=== PATIENT | female | born 1960 | race Caucasian/White ===

== ENCOUNTER → 2020-08-04 | Outpatient (CLI) | payer OTHER ==
--- NOTE | 2020-08-05 06:23 | US ---
EXAMINATION TYPE: US kidneys/renal and bladder DATE OF EXAM: 08/04/2020 COMPARISON: NONE CLINICAL HISTORY: N39.0 Urinary tract infection. frequent UTI's, history of kidney stones EXAM MEASUREMENTS: Right Kidney: 9.5 x 4.4 x 3.9 cm Left Kidney: 10.5 x 4.9 x 4.7 cm Technical limitations due to patient's body habitus Right Kidney: no evidence of hydronephrosis Left Kidney: no evidence of hydronephrosis, appears lobulated Bladder: appears wnl Bilateral Jets seen: no There is no evidence for hydronephrosis at this point in time. No nephrolithiasis is seen. No vikram s are identified on images saved. The urinary bladder is satisfactorily distended. Bilateral ureter al jets are not seen. When scanning right kidney adjacent liver is heterogeneously hyperechoic sugges ting diffuse fatty infiltration. IMPRESSION: Suboptimal study. No hydronephrosis noted bilaterally. Renal sizes are symmetric and with in normal limits.
== END | disposition home or self-care (01) ==
LOC: RADUSWWP 16:27
PROVIDERS: ATTEND Internal Medicine
DX: N39.0 Urinary tract infection, site not specified (principal); Z87.442 Personal history of urinary calculi
CPT/HCPCS: 76770

== ENCOUNTER → 2022-12-28 | Outpatient (CLI) | payer OTHER | END | disposition home or self-care (01) | LOC: LABPAT 11:34 | PROVIDERS: ATTEND Orthopaedic Surgery | DX: Z01.812 Encounter for preprocedural laboratory examination (principal) | CPT/HCPCS: 87070 ==

== ENCOUNTER → 2023-03-31 | Outpatient (CLI) | payer BC, OTHER ==
[2023-03-31 14:29] LABS: Prothrombin Time 10.8 sec (10.0-12.5)
[2023-03-31 18:16] LABS: HCT 39.4 % (37.2-46.3); HGB 12.3 g/dL (12.0-15.0); MCHC 31.2 g/dL (32.0-37.0); MCV 89.5 FL (80.0-97.0); Mean Platelet Volume 11.1 FL (9.5-12.2); NRBC Per 100 WBC 0 X 10*3/uL (0.00-0.01); Platelet Count 258 X 10*3/uL (140-440)
[2023-03-31 18:26] LABS: ALT 46 U/L (8-44); AST 41 U/L (13-35); Albumin 4.1 g/dL (3.8-4.9); Albumin/Globulin Ratio 1.17 Ratio (1.60-3.17); Alkaline Phosphatase 161 U/L (41-126); BUN/Creat Ratio 18.57 Ratio (12.00-20.00); Calcium 9.4 mg/dL (8.7-10.3); Carbon Dioxide 29.4 mmol/L (21.6-31.8); Chloride 101 mmol/L (96-109); Globulin 3.5 g/dL (1.6-3.3); Glucose 102 mg/dL (70-110); Potassium 4.2 mmol/L (3.5-5.5); Sodium 139 mmol/L (135-145); Total Bilirubin 0.4 mg/dL (0.3-1.2); Total Protein 7.6 g/dL (6.2-8.2)
== END | disposition home or self-care (01) ==
LOC: LABPAT 11:53
PROVIDERS: ATTEND Orthopaedic Surgery
DX: Z01.812 Encounter for preprocedural laboratory examination (principal); M16.11 Unilateral primary osteoarthritis, right hip; Z22.322 Carrier or suspected carrier of Methicillin resistant Staphylococcus aureus
CPT/HCPCS: 36415; 80053; 85027; 85610; 85730; 86850; 86900; 86901; 87070

== ENCOUNTER 2023-04-12 05:32 | Day surgery (SDC) | payer BC, OTHER ==
[~2023-04-12 05:32] MED LIST: ACETAMINOPHEN TAB 500 MG TAB PO PRN; GABAPENTIN 300 MG CAP PO PRN; MELOXICAM 7.5 MG TAB PO PRN; TRANEXAMIC 1,000 MG/100ML-NACL 1,000 MG in SALINE 1 100ML.BAG IVPB PRN
[2023-04-12] MEDS ORDERED: DEXAMETHASONE SOD PHOSPHATE 4 MG/ML 1 ML VIAL IV ONE (05:36)
[2023-04-12] MEDS ORDERED: ONDANSETRON 4 MG/2 ML VIAL IVP ONE ×2 (05:36→06:18)
[2023-04-12] MEDS ORDERED: LIDOCAINE 1% (10MG/ML) FOR IV START INTRADERMA PRN (05:36)
[2023-04-12] MEDS: LACTATED RINGERS 1,000 ML IV SCH (06:02)
[2023-04-12] MEDS ORDERED: DEXAMETHASONE SOD PHOSPHATE 4 MG/ML 1 ML VIAL IVP ONE (06:18)
[2023-04-12] MEDS ORDERED: fentaNYL (PF) 50 MCG/ML 2 ML AMP IVP ONE (06:37)
[2023-04-12] MEDS ORDERED: MIDAZOLAM 2 MG/2 ML VIAL IVP ONE (06:37)
[2023-04-12] MEDS ORDERED: WATER FOR INJECTION, STERILE 10 ML VIAL IV ONE (06:55)
[2023-04-12] MEDS ORDERED: PHENYLEPHRINE 10 MG/ML VIAL ONE (06:55)
[2023-04-12] MEDS ORDERED: ePHEDrine 50 MG/ML 1 ML VIAL ONE (06:55)
[2023-04-12] MEDS ORDERED: ROPIVACAINE 5 MG/ML 30 ML VIAL ONE (06:55)
[2023-04-12] MEDS ORDERED: TRANEXAMIC 1,000 MG/100ML-NACL PREMIX BAG ONE (06:55)
[2023-04-12] MEDS ORDERED: fentaNYL (PF) 50 MCG/ML 2 ML AMP ONE (06:55)
[2023-04-12] MEDS ORDERED: MIDAZOLAM 2 MG/2 ML VIAL ONE (06:55)
[2023-04-12] MEDS ORDERED: PROPOFOL 10 MG/ML 20 ML VIAL IV ONE (06:55)
[2023-04-12] MEDS ORDERED: MIDAZOLAM 2 MG/2 ML VIAL IV PRN (07:00)
[2023-04-12] MEDS ORDERED: fentaNYL (PF) 50 MCG/ML 2 ML AMP IV PRN (07:00)
[2023-04-12] MEDS ORDERED: HYDROmorphone 0.5 MG/0.5 ML SYRINGE IVP PRN ×2 (07:00→08:40)
[2023-04-12] MEDS ORDERED: ceFAZolin 1,000 MG in SODIUM CHLORIDE 0.9% 1,000 ML IRRIGATION ONE (07:00)
[2023-04-12] MEDS ORDERED: ROPIVACAINE 5 MG/ML 30 ML VIAL MISCELLANE ONE ×2 (07:28→08:05)
--- NOTE | 2023-04-12 08:15 | P.OP ---
Date of Procedure: 04/12/23 Preoperative Diagnosis: Severe Osteoarthritis right hip Postoperative Diagnosis: Severe osteoarthritis right hip Procedure(s) Performed: Right total hip arthroplasty with a direct anterior approach Implants: [employer] Polarstem standard size 3 with a collar [employer] R3, 3 hole hemispherical acetabular shell, 50 mm [employer] Reflection 6.5 mm cancellus screw, 20 mm 2 [employer] R3, XLPE 20 acetabular liner [employer] Oxinium femoral head 36 mm, +0 All components were press-fit. The articulation is Oxinium on polyethylene. Anesthesia: spinal Surgeon: Rafiq Benites Community Support Associate #1: Fallon Arrington Estimated Blood Loss (ml): 350 Pathology: none sent Condition: stable Disposition: PACU Indications for Procedure: After failure of conservative treatment we discussed the surgical and nonsu rgical treatment options at length. Patient wishes to proceed with a total hip arthroplasty with a direct anterior approach. Complications specific to this procedure were discussed at length, including but not limited to infection, leg length discrepancy, dislocation, nerve injury, and fracture. Covid-19 was also discussed at length with the patient, and they are aware of the current policies and procedures. The patient was given the option of delaying surgery, but they elect to proceed knowing these risks. Patient is aware of all these complications and informed consent was obtained Operative Findings: The operative findings are consistent with severe osteoarthritis of the right hip Description of Procedure: The patient was seen and evaluated in the preoperative area and the consent was reviewed. The operative site was marked with a skin marker. The patient verified the procedure and operative site. A MARCO A block was placed by anesthesia in the preoperative area. The patient was then brought to the operating room and given preoperative antibiotics intravenously. 1 g of Tranexamic acid was also given intravenously. A spinal anesthetic was administered by the anesthesia department. The patient was then placed on the [place] table with the bony prominences well-padded. The hip area was then prepped with a ChloraPrep solution and draped in the usual sterile fashion. A universal timeout was then performed, which confirmed the patient's name, surgical site, ALLERGIES, and procedure being performed on the consent. Next the incision site was located at 1 cm distal and 4 cm lateral to the anterior superior iliac spine. The skin and subcutaneous tissues were sharply incised. Incision was carefully dissected down to the fascia overlying the tensor fascia kaley muscle. This fascia was then incised in line with the muscle fibers. Care was taken to stay laterally in order to avoid injuring the lateral femoral cutaneous nerve. Next, using blunt finger dissection, the tensor fascia kaley muscle was dissected off its investing fascia. The muscle was then carefully retracted laterally with a cobra retractor over the lateral neck of the femur. Next, the circumflex vessels were identified and cauterized using the Aquamantis device. The anterior hip capsule was then exposed. The capsule was then opened and an inverted T fashion. The retractors were then placed intracapsularly. The retractors were maintained intracapsular throughout the procedure. The proximal femur was then visualized. Fluoroscopic x-rays were then taken in order to evaluate the preoperative leg lengths. A small amount of traction was placed on the leg. The femoral neck was then osteotomized at the appropriate level above the lesser trochanter. A small wedge of bone was then removed from the remaining femoral head. Next, using a corkscrew the femoral head was removed from the acetabulum. On gross visual inspection, the femoral head had complete loss of articular cartilage and multiple periarticular osteophytes. The femoral head was then measured. Attention was then turned to the acetabulum. The acetabulum was exposed and any remaining labrum was excised. Sequential reaming of the acetabulum was performed using fluoroscopic guidance until there was a good bed of bleeding cancellus bone. When the appropriate size was reached, a trial was then placed. The position and fit of the trial was checked with fluoroscopy. The trial was then removed. Then, using fluoroscopic guidance, the final implant was impacted at 20 of anteversion and 40 of abduction, and fully seated in the acetabulum. 2 screws were then placed in the acetabulum. Again fluoroscopy was used to check position of the screws. Next, the liner was then impacted, with a 20 elevated liner located in the anterior superior quadrant. Component locking was confirmed. Attention was then directed to the femur. With the aid of the [place] table, the femur was externally rotated to approximately 130, extended, and adducted under the opposite leg. A side hook was then placed under the proximal femur, and the side hook elevator was used to elevate the proximal femur while releasing the capsule. Retractors were then placed. A capsular release was performed, as well as a release of the conjoined tendon, which afforded excellent v isualization of the proximal femur. Next, a box osteotome was used to lateralize the proximal femur. A hand method lasting machine operator was then used to locate the femoral canal. Sequential broaching was then performed with appropriate size which afforded excellent fixation in the proximal femur. A trial was then placed with appropriate head and neck, and the hip was gently reduced with the aid of the [place] table. Fluoroscopy was then used to check position of the components, as well as to evaluate the leg lengths and offset. The leg lengths and offset were measured as closely as possible to ensure stability of the hip. The hip was then gently dislocated and the trials were then removed. Final implants were then impacted and the hip was again reduced. Final fluoroscopic x-rays confirmed that the components were in anatomic position. The leg lengths and offset were measured and were found to coincide with the trial measurements. The hip was also taken through range of motion, and found to be stable. The hip was then copiously irrigated with antibiotic solution with pulsatile lavage. The hip was then irrigated with Irrisept solution. The soft tissues were then injected with a ropivacaine solution. A second dose of 1 g of Tranexamic acid was also given intravenously. The fascia was then closed with 2-0 strata fix suture. The subcutaneous tissue was closed with 3-0 Vicryl. The subcuticular tissue was closed with 3-0 strata fix suture. The skin was then closed with Exofin skin glue. After the glue and dried, and Optifoam silver impregnated dressing was applied. The patient was t hen transferred to the recovery room in stable condition. The compliance assistant EDUARD Joshi was required due to the complexity of surgery, and the need for skilled surgical physician assistant for positioning, draping, exposure, retraction, and closure of the wound.
[2023-04-12] MEDS ORDERED: LACTATED RINGERS 1,000 ML IV ONE (08:17)
[2023-04-12] MEDS ORDERED: NALOXONE 0.4 MG/ML 1 ML VIAL IV PRN (08:40)
[2023-04-12] MEDS ORDERED: MAGNESIUM HYDROXIDE 2,400 MG/30 ML CUP PO PRN (08:40)
[2023-04-12] MEDS ORDERED: HYDROmorphone 1 MG/ML 1 ML SYRINGE IVP PRN (08:40)
--- NOTE | 2023-04-12 08:40 | FL ---
EXAMINATION TYPE: FL guidance operating room, XR Hip Limited RT Intraoperative/procedural fluoroscopi c services were provided. Total fluoroscopy time is 47.1 seconds with a total of 3 submitted images t o PACS. Please see the operative/procedural note for further details. DAP: 4.6328 Gycm2
[2023-04-12] MEDS ORDERED: HYDROcodone/APAP 7.5-325MG 1 EACH TAB PO PRN (08:42)
--- NOTE | 2023-04-12 09:14 | XR ---
EXAMINATION TYPE: XR Hip Limited RT DATE OF EXAM: 04/12/2023 8:57 AM CLINICAL INDICATION:Female, 62 years old with history of Status post hip surgery, assess surgical ali gnment; [facility] COMPARISON: Fluoroscopic images in the OR today TECHNIQUE AND FINDINGS: Single frontal view of the right hip. A total hip arthroplasty is in place, appears intact and normal ly aligned. No abnormal perihardware lucency or fracture. No significant malalignment. Small osseous spur again seen along the lateral margin of the acetabulum. Soft tissues show no unexpected radiopaqu e foreign body. Some regional soft tissue gas is suggested, not unexpected postoperative. IMPRESSION: Status post placement of right total hip arthroplasty. No evidence of complication.
[2023-04-12] MEDS: SODIUM CHLORIDE 0.9% 1,000 ML IV SCH ×2 (10:12→23:00)
[2023-04-12] MEDS: ONDANSETRON 4 MG/2 ML VIAL IVP PRN ×2 (11:47→21:52)
--- NOTE | 2023-04-12 13:21 | P.ANPRN ---
Procedure Note - Anesthesia - Nerve Block Performed Right Ray Single Time Out Performed: Yes ([id number]) Date of Procedure: 04/12/23 Location of Patient: PreOp Indication: Acute Post-Operative Pain, Dx/Pain Location (right hip) Specifically requested for management of pain by DrShamar: Rafiq Benites Sedation Type: Sedate with meaningful contact maintained Preparation: Sterile Prep Position: Supine Catheter: None Needle Types: Pajunk Needle Gauge: 21 Ultrasound used to visualize needle placement: Yes Ultrasound used to observe medication spread: Yes Injectate: 0.5% Ropivacaine (see comment for volume) (20 cc + 10 cc of Normal Saline) Blood Aspirated: No Pain Paresthesia on Injection Noted: No Resistance on Injection: Normal Image Stored and Saved: Yes Events: Uneventful and Well Tolerated
[2023-04-12] MEDS ORDERED: tiZANidine 4 MG TAB PO PRN (13:50)
--- NOTE | 2023-04-12 15:23 | P.CONS ---
History of Present Illness - Reason for Consult Consult date: 04/12/23 Medical management, status post right hip arthroplasty - History of Present Illness This is a 62-year-old female who was admitted under orthopedic services status post right hip arthroplasty today postop day 0. Patient reports she follows with Dr. Woodward in the outpatient setting with a past medical history of GERD, hypertension, osteoarthritis, left leg neuropathy, thyroid disorder, and some anxiety. Patient reports she went to PCP office for presurgical clearance. Reviewed medical record and labs from 03/31 within normal limits as well as hemoglobin was 12.3. We'll follow up on repeat labs in a.m. Home medications will be reviewed and resumed as appropriate. Patient reports she did take all of her home medications early this morning. Review Of Systems: Constitutional: No fever, no chills, no night sweats. No weight change. No weakness, fatigue or lethargy. No daytime sleepiness. Patient reports to feeling a little tired as she was anxious all night about the surgery and did not sleep well EENT: No headache. No blurred vision or double vision, no loss of vision. No loss of Hearing, no ringing in the ears, no dizziness. No nasal drainage or congestion. No epistaxis. No sore throat. Lungs: No shortness of breath, cough, no sputum production. No wheezing. Cardiovascular: No chest pain, no lower extremity edema. No palpitations. No paroxysmal nocturnal dyspnea. No orthopnea. No lightheadedness or dizziness. No syncopal episodes. Abdominal: No abdominal pain. No nausea, vomiting. No diarrhea. No constipation. No bloody or tarry stools.. No loss of appetite. Genitourinary: No dysuria, increased frequency, urgency. No urinary retention. Musculoskeletal: No myalgias. No muscle weakness, no gait dysfunction, no frequent falls. No back pain. No neck pain. Integumentary: No wounds, no lesions. No rash or pruritus. No unusual bruising. No change in hair or nails. Neurologic: No aphasia. No facial droop. No change in mentation. No head injury. No headache. No paralysis. No paresthesia. Psychiatric: No depression. No anxiety. No mood swings. Endocrine: No abnormal blood sugars. No weight change. No excessive sweating or thirst. No cold intolerance. PHYSICAL EXAMINATION: GENERAL: The patient is alert and oriented x4, Well developed, well nourished. Morbidly obese HEENT: Pupils are round and equally reacting to light. EOMI. no scleral icterus. No conjunctival pallor. Normocephalic, atraumatic. No pharyngeal erythema. No thyromegaly. CARDIOVASCULAR: S1 and S2 muffled PULMONARY: diminished breath sounds bilaterally with no wheezing or rhonchi noted. ABDOMEN: soft. Nontender on exam. obese. non-distended, normoactive bowel sounds. No palpable organomegaly. MUSCULOSKELETAL: No joint swelling or deformity. EXTREMITIES: No cyanosis, clubbing, or pedal edema. Right hip surgical dressing is dry and intact NEUROLOGICAL: Gross neurological examination did not reveal any focal deficits. Diffuse weakness SKIN: No rashes. Assessment: Status post right total hip arthroplasty History of osteoarthritis GERD Hypertension History of thyroid disorder History of anxiety morbid obesity with a BMI of 44.6 GI prophylaxis DVT prophylaxis Full code Plan: Recommend to continue with current medications and management per orthopedic services. Patient home medications reviewed and resumed and patient is postop day 0. Patient reports she took all of her a.m. meds this morning and have discussed with nursing staff about monitoring blood pressure to monitor for any postoperative hypotension Incentive spirometer at the bedside and encourage the patient to continue using at least 10 times every hour while awake Will follow-up on a.m. labs to monitor basic labs Awaiting PT/OT therapy evaluation in the a.m. Pain management and DVT prophylaxis per orthopedics Thank you kindly for this consultation. We will continue to follow with orthopedics during hospitalization The impression and plan of care has been dictated by Chely Chao, nurse practitioner as directed. Dr. Jey MD I have performed a history and examination and MDM of this patient, discussed the same with the dictator, and agree with the dictator's assessment and plan as written ,documented as a scribe. Based on total visit time, I have performed more than 50% of the visit. Any additional findings or plans will be noted. Past Medical History Past Medical History: GERD/Reflux, Hypertension, Osteoarthritis (OA), Thyroid Disorder Additional Past Medical History / Comment(s): hx. kidney stones, neuropathy left leg History of Any Multi-Drug Resistant Organisms: None Reported Past Surgical History: Section, Joint Replacement, Tonsillectomy, Tubal Ligation, Uterine Ablation Additional Past Surgical History / Comment(s): oral surg., right knee replaced 2022 Past Anesthesia/Blood Transfusion Reactions: No Reported Reaction Additional Past Anesthesia/Blood Transfusion Reaction / Comm: spinal GORDON w/C/S- had blood patch Past Psychological History: Anxiety Smoking Status: Never smoker Past Alcohol Use History: None Reported Past Drug Use History: None Reported - Past Family History Mother Family Medical History: No Reported History Medications and Allergies Home Medications Medication Instructions Recorded Confirmed Type FLUoxetine HCL [PROzac] 20 mg PO TID 12/30/22 04/12/23 History Fluticasone Nasal [place] [Flonase 1 spray EA NOSTRIL DAILY 12/30/22 04/12/23 History Nasal [place]] Levothyroxine Sodium 150 mcg PO MOTUWETHFR 12/30/22 04/12/23 History Omeprazole 20 mg PO DAILY PRN 12/30/22 04/12/23 History Pregabalin 150 mg PO TID 12/30/22 04/12/23 History tiZANidine HCL 4 mg PO BID PRN 12/30/22 04/12/23 History HYDROcodone/APAP 7.5-325MG [[place] 1 - 2 tab PO Q6H PRN #32 tab 01/04/23 04/12/23 Rx 7.5-325] Losartan/Hydrochlorothiazide 0.5 tab PO DAILY 04/05/23 04/12/23 History [Losartan-Hctz 50-12.5 mg Tab] Aspirin 325 mg PO BID #60 tab 04/12/23 Rx HYDROcodone/APAP 7.5-325MG [[place] 1 - 2 tab PO Q6H PRN #32 tab 04/12/23 Rx 7.5-325] Sennosides [Senokot] 2 tab PO DAILY PRN #60 tablet 04/12/23 Rx Allergies Allergy/AdvReac Type Severity Reaction Status Date / Time atenolol AdvReac Cough Verified 04/12/23 05:46 indapamide [From Lozol] AdvReac DIZZINESS Verified 04/12/23 05:46 nifedipine [From Procardia] AdvReac ELEVATED Verified 04/12/23 05:46 B/P Physical Exam Vitals: Vital Signs Temp Pulse Pulse Resp BP BP Pulse Ox 04/12/23 10:53 78 16 126/64 97 04/12/23 10:23 72 16 119/64 98 04/12/23 10:07 72 16 109/60 96 04/12/23 09:52 73 16 105/60 95 04/12/23 09:37 73 16 107/58 97 04/12/23 09:22 73 16 99/59 97 04/12/23 09:07 75 16 107/63 98 04/12/23 08:52 77 16 104/59 100 04/12/23 08:37 97 F L 72 16 81/52 100 04/12/23 06:48 69 16 97/53 98 04/12/23 06:02 98.5 F 82 16 130/70 96 Intake and Output 04/11/23 04/12/23 04/12/23 22:59 06:59 14:59 Intake Total 100 1351 Output Total 350 Balance 100 1001 Intake: IV 100 1351 Output: Estimated Blood Loss 350 Other: Weight 114.2 kg 114.2 kg
[2023-04-12] MEDS: HYDROcodone/APAP 7.5-325MG 1 EACH TAB PO PRN (15:24)
[2023-04-12] MEDS: FLUoxetine HCL 20 MG CAP PO SCH ×2 (15:54→22:59)
[2023-04-12] MEDS: PREGABALIN 75 MG CAP PO SCH ×2 (15:54→22:59)
[2023-04-12] MEDS: FLUTICASONE 50MCG/SPRAY NASAL 16GM EA NOSTRIL SCH (15:54)
[2023-04-12] MEDS: ASPIRIN 325 MG TAB PO SCH (20:19)
[2023-04-12] MEDS: HYDROmorphone 0.5 MG/0.5 ML SYRINGE IVP PRN (20:19)
[2023-04-12] MEDS ORDERED: SENNOSIDES-DOCUSATE SODIUM 1 EACH TAB PO SCH (21:00)
[2023-04-13] MEDS: LACTATED RINGERS 1,000 ML IV SCH (00:01)
[2023-04-13] MEDS: HYDROcodone/APAP 7.5-325MG 1 EACH TAB PO PRN ×2 (02:23→09:20)
[2023-04-13] MEDS ORDERED: LEVOTHYROXINE 75 MCG TAB PO SCH (06:30)
[2023-04-13] MEDS: HYDROmorphone 0.5 MG/0.5 ML SYRINGE IVP PRN (06:40)
[2023-04-13 07:29] LABS: Basophils % (A) 0 %; Eosinophils % (A) 1 %; HCT 33.4 % (34.0-46.0); HGB 10.6 gm/dL (11.4-16.0); Hypochromasia Moderate; Lymphocytes # (A) 1.4 k/uL (1.0-4.8); Lymphocytes % (A) 19 %; MCH 29.3 pg (25.0-35.0); MCHC 31.8 g/dL (31.0-37.0); MCV 92.2 fL (80.0-100.0); Mean Platelet Volume 8.2; Monocytes # (A) 0.5 k/uL (0-1.0); Monocytes % (A) 7 %; Neutrophils # (A) 5.2 k/uL (1.3-7.7); Neutrophils % (A) 71 %; Platelet Count 214 k/uL (150-450); RBC 3.62 m/uL (3.80-5.40); RDW 14.4 % (11.5-15.5); WBC 7.3 k/uL (3.8-10.6)
[2023-04-13] MEDS ORDERED: PANTOPRAZOLE 40 MG TABLET PO SCH (07:30)
[2023-04-13 08:05] VITALS: BP 124/71; PULSE 71; RESP 16; TEMP 98
[2023-04-13] MEDS ORDERED: LOSARTAN-HCTZ 50-12.5 MG 1 EACH TAB PO SCH (09:00)
[2023-04-13] MEDS: ASPIRIN 325 MG TAB PO SCH (09:15)
[2023-04-13] MEDS: PREGABALIN 75 MG CAP PO SCH (09:15)
[2023-04-13] MEDS: FLUTICASONE 50MCG/SPRAY NASAL 16GM EA NOSTRIL SCH (09:15)
[2023-04-13] MEDS: FLUoxetine HCL 20 MG CAP PO SCH (09:15)
--- NOTE | 2023-04-13 09:30 | P.DS ---
Providers Expected date of discharge: 04/13/23 Attending physician: Rafiq Benites Consults: 04/12/23 08:40 Consult Physician Routine Consulting Provider: Concetta Watson Consult Reason/Comments: medical management Do you want consulting provider notified?: Yes Primary care physician: Elba Woodward - Discharge Diagnosis(es) (1) Osteoarthritis of right hip Current Visit: Yes Status: Acute (2) S/P total right hip arthroplasty Current Visit: Yes Status: Acute Hospital Course: This is a 62-year-old female with known history of degenerative arthritis of the right hip. The patient presents for evaluation. After discussion and consideration patient elects to proceed with total hip arthroplasty. The patient is seen preoperatively by her primary care physician and cleared for surgery. Patient is admitted to [facility] on 04/12/2023 for a right total hip arthroplasty. The procedures performed without complication or sequelae. The patient is doing well postoperatively. Labs and vital signs are stable on day of discharge. On day of discharge patient's hip incision is healing well. There is minimal erythema. There is no drainage noted at this time. There is minimal soft tissue swelling to the hip and thigh. Patient has full foot and ankle motion without difficulty or pain. Neurovascular status to the right lower extremity is intact. Patient is discharged to home in good condition. Pertinent Studies: Laboratory Tests 04/13/23 05:47 WBC 7.3 RBC 3.62 L Hgb 10.6 L Hct 33.4 L Patient Condition at Discharge: Stable Plan - Discharge Summary Discharge Rx Participant: Yes New Discharge Prescriptions: New Aspirin 325 mg PO BID #60 tab Sennosides [Senokot] 2 tab PO DAILY PRN #60 tablet PRN Reason: Constipation HYDROcodone/APAP 7.5-325MG [[place] 7.5-325] 1 - 2 tab PO Q6H PRN #32 tab PRN Reason: Pain No Action Levothyroxine Sodium 150 mcg PO MOTUWETHFR Fluticasone Nasal [place] [Flonase Nasal [place]] 1 spray EA NOSTRIL DAILY tiZANidine HCL 4 mg PO BID PRN PRN Reason: Muscle Spasm FLUoxetine HCL [PROzac] 20 mg PO TID HYDROcodone/APAP 7.5-325MG [[place] 7.5-325] 1 - 2 tab PO Q6H PRN #32 tab PRN Reason: Pain Losartan/Hydrochlorothiazide [Losartan-Hctz 50-12.5 mg Tab] 0.5 tab PO DAILY Pregabalin 150 mg PO TID Omeprazole 20 mg PO DAILY PRN PRN Reason: Heartburn Discharge Medication List FLUoxetine HCL [PROzac] 20 mg PO TID 12/30/22 [History] Fluticasone Nasal [place] [Flonase Nasal [place]] 1 spray EA NOSTRIL DAILY 12/30/22 [History] Levothyroxine Sodium 150 mcg PO MOTUWETHFR 12/30/22 [History] Omeprazole 20 mg PO DAILY PRN 12/30/22 [History] Pregabalin 150 mg PO TID 12/30/22 [History] tiZANidine HCL 4 mg PO BID PRN 12/30/22 [History] HYDROcodone/APAP 7.5-325MG [[place] 7.5-325] 1 - 2 tab PO Q6H PRN #32 tab 01/04/23 [Rx] Losartan/Hydrochlorothiazide [Losartan-Hctz 50-12.5 mg Tab] 0.5 tab PO DAILY 04/05/23 [History] Aspirin 325 mg PO BID #60 tab 04/12/23 [Rx] HYDROcodone/APAP 7.5-325MG [[place] 7.5-325] 1 - 2 tab PO Q6H PRN #32 tab 04/12/23 [Rx] Sennosides [Senokot] 2 tab PO DAILY PRN #60 tablet 04/12/23 [Rx] Follow up Appointment(s)/Referral(s): [facility]] - 1-2 Days ([facility] will call you to schedule your in home physical therapy visits. ) Rafiq Benites DO [Doctor of Osteopathic Medicine] - 2 Weeks Activity/Diet/Wound Care/Special Instructions: Weightbearing as tolerated with walker. Leave dressing intact. Dressing may be removed by home care nurse or by patient in 7 days. Then change dressing twice daily until follow up. May shower with initial dressing intact and after removal. If dressing become saturated, please remove. Please take aspirin 325mg twice daily for 30 days to prevent blood clots. Recommend use of compression stockings daily until follow up to help prevent swelling and blood clots. May remove at night before sleeping. Please follow[facility]up with [facility] in 2 weeks and call with any questions or concerns, . Discharge Disposition: HOME WITH HOME HEALTH SERVICES
--- NOTE | 2023-04-13 10:18 | P.PN ---
Subjective Progress Note Date: 04/13/23 - Reason for Consult Consult date: 04/12/23 Medical management, status post right hip arthroplasty - History of Present Illness This is a 62-year-old female who was admitted under orthopedic services status post right hip arthroplasty today postop day 0. Patient reports she follows with Dr. Woodward in the outpatient setting with a past medical history of GERD, hypertension, osteoarthritis, left leg neuropathy, thyroid disorder, and some anxiety. Patient reports she went to PCP office for presurgical clearance. Reviewed medical record and labs from 03/31 within normal limits as well as hemoglobin was 12.3. We'll follow up on repeat labs in a.m. Home medications will be reviewed and resumed as appropriate. Patient reports she did take all of her home medications early this morning. 04-13-2023 Patient is seen in follow-up with morning status post right total hip arthroplasty and doing relatively well. Patient worked with physical therapy with plans on discharging home. Patient reports she has help at home and reports feeling fine and would like to go home. Patient with incentive spirometer at the bedside encouraged to take home and continue using at least 10 times every hour while awake. All medications have been reviewed and resumed and patient has been instructed to follow-up with primary care provider in the outpatient setting. Patient is afebrile with no reported chest pain or shortness of breath. Patient is medically stable for discharge once cleared by orthopedics. Review of systems: Constitutional: No reports of fatigue, fever, or chills Cardiovascular: No reports of chest pain or palpitations Respiratory: No reports of shortness of breath or cough GI: No reports of nausea, vomiting, or diarrhea : No reports of dysuria or retention Neurovascular: No reports of weakness or numbness All medications have been reviewed PHYSICAL EXAMINATION: GENERAL: The patient is alert and oriented x4, Well developed, well nourished. Morbidly obese HEENT: Pupils are round and equally reacting to light. EOMI. no scleral icterus. No conjunctival pallor. Normocephalic, atraumatic. No pharyngeal erythema. No thyromegaly. CARDIOVASCULAR: S1 and S2 muffled PULMONARY: diminished breath sounds bilaterally with no wheezing or rhonchi noted. ABDOMEN: soft. Nontender on exam. obese. non-distended, normoactive bowel sounds. No palpable organomegaly. MUSCULOSKELETAL: No joint swelling or deformity. EXTREMITIES: No cyanosis, clubbing, or pedal edema. Right hip surgical dressing is dry and intact NEUROLOGICAL: Gross neurological examination did not reveal any focal deficits. Diffuse weakness SKIN: No rashes. Assessment: Status post right total hip arthroplasty, postop day 1 History of osteoarthritis GERD Hypertension History of thyroid disorder History of anxiety morbid obesity with a BMI of 44.6 GI prophylaxis DVT prophylaxis Full code Plan: Recommend to continue with current medications and management per orthopedic services. Patient home medications reviewed and resumed and patient is medically stable for discharge today once cleared by orthopedics. Incentive spirometer at the bedside and encouraged the patient to continue using at least 10 times every hour while awake and including taking home and continuing to use Plan is for patient to discharge home and reports has help at home Pain management and DVT prophylaxis per orthopedics Patient reports to being discharged today. Patient is medically stable for discharge today Thank you kindly for this consultation. We will continue to follow with orthopedics during hospitalization The impression and plan of care has been dictated by Chely Chao, nurse practitioner as directed. Dr. Jey MD I have performed a history and examination and MDM of this patient, discussed the same with the dictator, and agree with the dictator's assessment and plan as written ,documented as a scribe. Based on total visit time, I have performed more than 50% of the visit. Any additional findings or plans will be noted. Objective - Vital Signs Vital signs: Vital Signs Temp 98.0 F 04/13/23 07:58 Pulse 71 04/13/23 07:58 Resp 16 04/13/23 07:58 BP 124/71 04/13/23 07:58 Pulse Ox 100 04/13/23 07:58 FiO2 Intake & Output 04/12/23 04/13/23 04/13/23 18:59 06:59 18:59 Intake Total 1601 Output Total 950 Balance 651 Weight 114.2 kg Intake: IV 1351 Oral 250 Output: Urine 600 Estimated Blood Loss 350 Other: Voiding Method Toilet # Voids 2 # Emeses 1 - Labs CBC & Chem 7: 04/13/23 05:47 Labs: Abnormal Lab Results - Last 24 Hours (Table) 04/13/23 Range/Units 05:47 RBC 3.62 L (3.80-5.40) m/uL Hgb 10.6 L (11.4-16.0) gm/dL Hct 33.4 L (34.0-46.0) %
[2023-04-13 11:18] LABS: BUN/Creat Ratio 18.43 Ratio (12.00-20.00); Blood Urea Nitrogen 12.9 mg/dL (9.0-27.0); Calcium 9.1 mg/dL (8.7-10.3); Carbon Dioxide 24.6 mmol/L (21.6-31.8); Chloride 104 mmol/L (96-109); Glucose 126 mg/dL (70-110); Magnesium 2.1 mg/dL (1.5-2.4); Sodium 139 mmol/L (135-145)
== END 2023-04-13 11:05 | disposition home health service (06) ==
LOC: OR 05:32 → 4SSUR 10:53 → OR 04-13 11:05
PROVIDERS: ATTEND Orthopaedic Surgery
DX: M16.11 Unilateral primary osteoarthritis, right hip (principal); I10 Essential (primary) hypertension; F41.9 Anxiety disorder, unspecified; E07.9 Disorder of thyroid, unspecified; G89.18 Other acute postprocedural pain; G62.9 Polyneuropathy, unspecified; F10.90 Alcohol use, unspecified, uncomplicated; Z79.890 Hormone replacement therapy; Z79.899 Other long term (current) drug therapy; Z88.8 Allergy status to other drugs, medicaments and biological substances; Z87.442 Personal history of urinary calculi; Z98.51 Tubal ligation status; Z96.651 Presence of right artificial knee joint; Z98.890 Other specified postprocedural states
CPT/HCPCS: 97161; 97166; 64447; 80048; 83735; 85025; 73501; 27130; C1776; J2250; J1100; J0690 ×2; J2405; J3010; J1170 ×3; J2795

== ENCOUNTER 2023-08-24 20:03 | Observation (INO) | payer BC, OTHER ==
--- NOTE | 2023-08-24 21:01 | XR ---
EXAMINATION TYPE: XR Hip RT and AP Pelvis DATE OF EXAM: 08/24/2023 8:45 PM CLINICAL INDICATION:Female, 62 years old with history of pain; [facility] COMPARISON: Hip radiograph 04/12/2023 TECHNIQUE: The right hip was examined in the frontal and lateral projections and a AP pelvis. FINDINGS: No evidence for acute process, joint dislocation or significant soft tissue swelling. Stabl e appearance of right hip prosthesis without evidence of hardware loosening. IMPRESSION: Stable appearance of right hip prosthesis. No acute process.
[2023-08-24] MEDS: KETOROLAC 15 MG/ML 1 ML VIAL IM STA (22:18)
--- NOTE | 2023-08-24 23:08 | ED ---
General Adult HPI - General Chief complaint: Extremity Injury, Lower Stated complaint: Injury Right hip pain Source: patient, EMS, RN notes reviewed Mode of arrival: ambulatory Limitations: no limitations - History of Present Illness Initial comments: 62-year-old female presents to the emergency department for evaluation of right hip pain. Patient states that she was attempting to get out of her vehicle when she heard a pop in her right hip. She states that following that she had severe pain in her right hip. She notes that she is unable to ambulate or bear weight on the right side following this. She does have a history of right sided hip replacement. Denies any other injury. - Related Data Home Medications Medication Instructions Recorded Confirmed FLUoxetine HCL [PROzac] 20 mg PO TID 12/30/22 04/12/23 Fluticasone Nasal Shields [Flonase 1 spray EA NOSTRIL DAILY 12/30/22 04/12/23 Nasal Shields] Levothyroxine Sodium 150 mcg PO MOTUWETHFR 12/30/22 04/12/23 Omeprazole 20 mg PO DAILY PRN 12/30/22 04/12/23 Pregabalin 150 mg PO TID 12/30/22 04/12/23 tiZANidine HCL 4 mg PO BID PRN 12/30/22 04/12/23 Losartan/Hydrochlorothiazide 0.5 tab PO DAILY 04/05/23 04/12/23 [Losartan-Hctz 50-12.5 mg Tab] Previous Rx's Medication Instructions Recorded HYDROcodone/APAP 7.5-325MG [[place] 1 - 2 tab PO Q6H PRN #32 tab 01/04/23 7.5-325] Aspirin 325 mg PO BID #60 tab 04/12/23 HYDROcodone/APAP 7.5-325MG [[place] 1 - 2 tab PO Q6H PRN #32 tab 04/12/23 7.5-325] Sennosides [Senokot] 2 tab PO DAILY PRN #60 tablet 04/12/23 Allergies Allergy/AdvReac Type Severity Reaction Status Date / Time atenolol AdvReac Cough Verified 08/24/23 20:12 indapamide [From Lozol] AdvReac DIZZINESS Verified 08/24/23 20:12 nifedipine [From Procardia] AdvReac ELEVATED Verified 08/24/23 20:12 B/P Review of Systems ROS Statement: Those systems with pertinent positive or pertinent negative responses have been documented in the HPI. ROS Other: All systems not noted in ROS Statement are negative. Past Medical History Past Medical History: Hypertension, Thyroid Disorder Past Surgical History: Section, Tonsillectomy, Tubal Ligation Additional Past Surgical History / Comment(s): R knee 2022, R hip Apr 2023 Past Psychological History: Depression Smoking Status: Never smoker Past Alcohol Use History: Occasional Past Drug Use History: None Reported General Exam Limitations: no limitations General appearance: alert, in no apparent distress Head exam: Present: atraumatic, normocephalic, normal inspection Eye exam: Present: normal appearance, PERRL, EOMI. Absent: scleral icterus, conjunctival injection, periorbital swelling ENT exam: Present: normal exam, mucous membranes moist Respiratory exam: Present: normal lung sounds bilaterally. Absent: respiratory distress, wheezes, rales, rhonchi, stridor Cardiovascular Exam: Present: regular rate, normal rhythm, normal heart sounds. Absent: systolic murmur, diastolic murmur, rubs, gallop, clicks Extremities exam: Present: normal inspection, tenderness (ttp to right proximal anterior femur/hip), normal capillary refill, other (DP and PT pulses 2+). Absent: full ROM, pedal edema, joint swelling, calf tenderness Neurological exam: Present: alert, oriented X3 Psychiatric exam: Present: normal affect, normal mood Skin exam: Present: warm, dry, intact, normal color. Absent: rash Course Vital Signs 08/24/23 08/24/23 20:04 22:11 Temperature 97.7 F Pulse Rate 68 63 Respiratory 18 18 Rate Blood Pressure 144/82 148/84 O2 Sat by Pulse 96 99 Oximetry Medical Decision Making - Medical Decision Making Was pt. sent in by a medical professional or institution (, PA, CONDUCTOR/BRAKEMAN, urgent care, hospital, or shelter...) When possible be specific @ -No Did you speak to anyone other than the patient for history (EMS, parent, family, police, friend...)? What history was obtained from this source @ -No Did you review nursing and triage notes (agree or disagree)? Why? @ -I reviewed and agree with nursing and triage notes Were old charts reviewed (outside hosp., previous admission, EMS record, old EKG, old radiological studies, urgent care reports/EKG's, shelter records)? Report findings @ -No old charts were reviewed Differential Diagnosis (chest pain, altered mental status, abdominal pain women, abdominal pain men, vaginal bleeding, weakness, fever, dyspnea, syncope, headache, dizziness, GI bleed, back pain, seizure, CVA, palpatations, mental health, musculoskeletal)? @ -Differential Musculoskeletal Muscular strain, contusion, ligament sprain, fracture, arthritis, septic arthritis, bursitis, cellulitis, muscle spasm, nerve compression, DVT, arterial occlusion, herpes zoster, electrolyte abnormality, tumor.... This is not meant to be in all inclusive list EKG interpreted by me (3pts min.). @ -None X-rays interpreted by me (1pt min.). @ -XR right hip obtained shows no evidence of acute fracture or dislocation, hip prosthesis intact CT interpreted by me (1pt min.). @ -CT of the right hip shows right hip arthroplasty with no acute abnormality U/S interpreted by me (1pt. min.). @ -None done What testing was considered but not performed or refused? (CT, X-rays, U/S, labs)? Why? @ -None What meds were considered but not given or refused? Why? @ -None Did you discuss the management of the patient with other professionals (professionals i.e. , PA, CONDUCTOR/BRAKEMAN, lab, RT, psych nurse, social services analyst, gold leaf roller, teacher, president and chief operating officer, spring encaser)? Give summary @ -Management discussed with [facility], Chely Chao who is accepting of the admission Was smoking cessation discussed for >3mins.? @ -No Was critical care preformed (if so, how long)? @ -No Were there social determinants of health that impacted care today? How? (Homelessness, low income, unemployed, alcoholism, drug addiction, tra nsportation, low edu. Level, literacy, decrease access to med. care, intermediate, rehab)? @ -No Was there de-escalation of care discussed even if they declined (Discuss DNR or withdrawal of care, Hospice)? DNR status @ -No What co-morbidities impacted this encounter? (DM, HTN, Smoking, COPD, CAD, Cancer, CVA, ARF, Chemo, Hep., AIDS, mental health diagnosis, sleep apnea, morbid obesity)? @ -None Was patient admitted / discharged? Hospital course, mention meds given and route, prescriptions, significant lab abnormalities, going to OR and other pertinent info. @ -Admitted. Patient presented to the emergency department for evaluation of right hip pain. X-rays obtained which show no evidence of acute fracture. CT was obtained as the patient is unable to ambulate. This showed intact right hip arthroplasty. Since the patient is unable to ambulate, patient will be admitted for observation with physical therapy and Occupational Therapy consultations. Case was discussed with Chely Chao with [facility] who is accepting of the admission. Case discussed Dr. Rincon. Undiagnosed new problem with uncertain prognosis? @ -No Drug Therapy requiring intensive monitoring for toxicity (Heparin, Nitro, Insulin, Cardizem)? @ -No Were any procedures done? @ -No Diagnosis/symptom? @ -Right hip pain, unable to ambulate Acute, or Chronic, or Acute on Chronic? @ -Acute Uncomplicated (without systemic symptoms) or Complicated (systemic symptoms)? @ -Uncomplicate Side effects of treatment? @ -No Exacerbation, Progression, or Severe Exacerbation? @ -No Poses a threat to life or bodily function? How? (Chest pain, [place], [place], pneumonia, PE, COPD, DKA, ARF, appy, cholecystitis, CVA, Diverticulitis, Homicidal, Suicidal, threat to staff... and all critical care pts) @ -No Disposition Clinical Impression: Right hip pain, Unable to ambulate Disposition: ADMITTED IP TO THIS [facility] Condition: Stable Is patient prescribed a controlled substance at d/c from ED?: No Referrals: Elba Woodward [Primary Care Provider] - 1-2 days
--- NOTE | 2023-08-24 23:45 | CT ---
EXAM: CT Right Lower Extremity Without Intravenous Contrast, Hip CLINICAL HISTORY: ITS.REASON CT Reason: fall, unable to ambulate TECHNIQUE: Axial computed tomography images of the right hip without intravenous contrast. CTDI is 42.8 mGy and DLP is 1516 mGy-cm. This CT exam was performed using one or more of the following dose reduction techniques: automated exposure control, adjustment of the mA and/or kV according to patient size, and/or use of iterative reconstruction technique. COMPARISON: No relevant prior studies available. FINDINGS: Bones/joints: RIGHT hip arthroplasty. No periprosthetic fracture, loosening, or subluxation. Osseous demineralization. Soft tissues: Enterocutaneous scar. Minimal fluid in the scar, concerning for a small postoperative seroma. IMPRESSION: RIGHT hip arthroplasty. No periprosthetic fracture, loosening, or subluxation.
[2023-08-25] MEDS ORDERED: NALOXONE 0.4 MG/ML 1 ML VIAL IV PRN (00:08)
[2023-08-25] MEDS ORDERED: ACETAMINOPHEN TAB 325 MG TAB PO PRN (00:08)
[2023-08-25] MEDS ORDERED: IBUPROFEN 400 MG TAB PO PRN (00:08)
[2023-08-25 00:48] LABS: Partial Thromboplastin Time 22.9 sec (22.0-30.0); Prothrombin Time 10.9 sec (10.0-12.5)
[2023-08-25 00:53] LABS: ALT 83 U/L (4-34); AST 79 U/L (14-36); African American GFR (CKD) >90 (>60 ml/min/1.73 sqM); Albumin 3.7 g/dL (3.5-5.0); Alkaline Phosphatase 155 U/L (38-126); Anion Gap 6 mmol/L; Blood Urea Nitrogen 14 mg/dL (7-17); Calcium 8.9 mg/dL (8.4-10.2); Carbon Dioxide 24 mmol/L (22-30); Chloride 105 mmol/L (98-107); Glucose 131 mg/dL (74-99); Non-African American GFR(CKD) >90 (>60 ml/min/1.73 sqM); Potassium 3.9 mmol/L (3.5-5.1); Sodium 135 mmol/L (137-145); Total Bilirubin 0.4 mg/dL (0.2-1.3); Total Protein 7.6 g/dL (6.3-8.2)
[2023-08-25 00:58] LABS: Basophils % (A) 0 %; Eosinophils % (A) 0 %; HCT 35.1 % (34.0-46.0); HGB 11.1 gm/dL (11.4-16.0); Hypochromasia Moderate; Lymphocytes # (A) 1.1 k/uL (1.0-4.8); Lymphocytes % (A) 25 %; MCH 26.9 pg (25.0-35.0); MCHC 31.6 g/dL (31.0-37.0); MCV 85.3 fL (80.0-100.0); Mean Platelet Volume 7.9; Monocytes # (A) 0.2 k/uL (0-1.0); Monocytes % (A) 5 %; Neutrophils % (A) 67 %; Platelet Count 192 k/uL (150-450); RBC 4.12 m/uL (3.80-5.40); RDW 15.4 % (11.5-15.5); WBC 4.5 k/uL (3.8-10.6)
[2023-08-25] MEDS: HYDROmorphone 1 MG/ML 1 ML SYRINGE IVP PRN (01:45)
[2023-08-25] MEDS: ONDANSETRON 4 MG/2 ML VIAL IVP PRN (02:33)
[2023-08-25 12:09] VITALS: RESP 16
[2023-08-25] MEDS: LORATADINE 10 MG TAB PO SCH (14:06)
[2023-08-25] MEDS: FLUoxetine HCL 20 MG CAP PO SCH (14:06)
[2023-08-25] MEDS: KETOROLAC 15 MG/ML 1 ML VIAL IVP PRN (15:04)
--- NOTE | 2023-08-25 15:05 | P.CNOR ---
History of Present Illness - HPI Consult date: 08/25/23 History of present illness: This is a 62-year-old female who is admitted for inability to ambulate. Orthopedics is consulted for further evaluation and patient has a history of right total hip arthroplasty on 04/12/[address] Rafiq Benites. Patient is seen and evaluated at bedside today. Patient states that she heard a snap in her right hip when she twisted to get out of her vehicle. Patient reports that she experienced severe right hip pain and was unable to walk. Patient states that she had not tried to get out of bed yet today. Patient denies any fever/chills, chest pain, shortness breath, abdominal pain, radicular pain, numbness, weakness or tingling. Review of Systems See HPI. Past Medical History Past Medical History: Hypertension, Thyroid Disorder History of Any Multi-Drug Resistant Organisms: None Reported Past Surgical History: Section, Tonsillectomy, Tubal Ligation Additional Past Surgical History / Comment(s): R knee 2022, R hip Apr 2023 Past Anesthesia/Blood Transfusion Reactions: No Reported Reaction Additional Past Anesthesia/Blood Transfusion Reaction / Comm: woke up during a tonsilectomy Past Psychological History: Depression Smoking Status: Never smoker Past Alcohol Use History: Occasional Past Drug Use History: None Reported Medications and Allergies Home Medications Medication Instructions Recorded Confirmed Type FLUoxetine HCL [PROzac] 20 mg PO BID 12/30/22 08/25/23 History Levothyroxine Sodium 150 mcg PO DAILY 12/30/22 08/25/23 History Pregabalin 150 mg PO TID 12/30/22 08/25/23 History tiZANidine HCL 4 mg PO HS 12/30/22 08/25/23 History Losartan/Hydrochlorothiazide 1 tab PO DAILY 04/05/23 08/25/23 History [Losartan-Hctz 50-12.5 mg Tab] Ibuprofen [Motrin] 800 mg PO BID PRN 08/25/23 08/25/23 History Loratadine [Claritin] 10 mg PO DAILY 08/25/23 08/25/23 History Ondansetron [Zofran] 4 mg PO DAILY PRN 08/25/23 08/25/23 History Allergies Allergy/AdvReac Type Severity Reaction Status Date / Time atenolol AdvReac Cough Verified 05/16/24 07:53 indapamide [From Lozol] AdvReac DIZZINESS Verified 08/25/23 07:53 nifedipine [From Procardia] AdvReac ELEVATED Verified 08/25/23 07:53 B/P Physical Examination On exam patient is resting comfortably in bed in no acute distress. Patient is alert and oriented 3. No pain with log roll of the right lower extremity. Patient is able to actively flex and extend the left hip with some discomfort. Patient had no pain with internal and external rotation of the right hip. Some discomfort with abduction. There is mild tenderness to palpation over the anterior aspect of the thigh. No obivous swelling or ecchymosis. Skin is intact. Calf is soft and nontender to palpation. Sensation intact. Neurovascular status and circulatory status are intact. Results A CT report of the right hip dated 08/24/2023 reveals: Right hip arthroplasty. No periprosthetic fracture, loosening, or subluxation. X-rays of the right hip and pelvis are reviewed and are negative for any fra cture or dislocation. Right total hip arthroplasty is in good position and alignment. - Labs Labs: Abnormal Lab Results - Last 24 Hours (Table) 08/25/23 08/25/23 Range/Units 00:16 00:16 Hgb 11.1 L (11.4-16.0) gm/dL Sodium 135 L (137-145) mmol/L Glucose 131 H (74-99) mg/dL AST 79 H (14-36) U/L ALT 83 H (4-34) U/L Alkaline Phosphatase 155 H (38-126) U/L H & H 08/25/23 Range/Units 00:16 Hgb 11.1 L (11.4-16.0) gm/dL Hct 35.1 (34.0-46.0) % Coagulation 08/25/23 Range/Units 00:16 INR 1.0 (<1.2) Result Diagrams: 08/25/23 00:16 08/25/23 00:16 Assessment and Plan (1) History of total replacement of right hip Current Visit: Yes Status: Acute Code(s): Z96.641 - PRESENCE OF RIGHT ARTIFICIAL HIP JOINT SNOMED Code(s): 195826173367 (2) Right hip pain Current Visit: Yes Status: Acute Code(s): M25.551 - PAIN IN RIGHT HIP SNOMED Code(s): 10000636 Plan: 1. Continue pain control. Recommend physical therapy for mobilization. Patient may bear weight as tolerated to the right lower extremity. Recommend use of a walker for support. There is no surgical intervention planned. We will continue to follow. Patient may benefit from a prednisone taper for pain control upon discharge.
[2023-08-25] MEDS: PROCHLORPERAZINE INJ 10 MG/2 ML VIAL IVP PRN (15:08)
[2023-08-25] MEDS: LEVOTHYROXINE 75 MCG TAB PO SCH (16:44)
[2023-08-25] MEDS: PREGABALIN 75 MG CAP PO SCH (16:47)
[2023-08-25] MEDS: HEPARIN SODIUM,PORCINE 5,000 UNIT/ML 1 ML VIAL SQ SCH (19:51)
[2023-08-25] MEDS: tiZANidine 4 MG TAB PO SCH (19:51)
--- NOTE | 2023-08-25 23:24 | P.HPIM ---
History of Present Illness H&P Date: 08/25/23 This is a 62 year old female with medical history of hypertension, hypothyroidism, depression. Patient comes into the hospital secondary to right hip pain which happened after patient was exiting her vehicle. Patient reports feeling a pop in her right hip and continues to rate the pain a 10/10. Has now been unable to bear weight on the right leg. Patient underwent right hip hemiarthroplasty back in April of this year with Dr. Benites does report having increased pain to the right hip but was recently given the all clear to continue activity per usual. Had an xray of the right hip reveals stable appearance of the prosthesis. No acute process. Right hip CT reveals a right hip arthroplasty, no periprosthetic fracture, loosening, or subluxation. CT does mention enterocutaneous scar. Minimal fluid in the scar with concern for a small postoperative seroma. Patient denies any numbness or tingling of the right leg. Patient has been admitted to the hospital with consult placed to orthopedics. Currently evaluated on the medical floor pending evaluation by orthopedics and physical therapy. REVIEW OF SYSTEMS: CONSTITUTIONAL: No fever, no malaise, no fatigue. HEENT: No recent visual problems or hearing problems. Denied any sore throat. CARDIOVASCULAR: No chest pain, orthopnea, PND, no palpitations, no syncope. PULMONARY: No shortness of breath, no cough, no hemoptysis. GASTROINTESTINAL: No diarrhea, no nausea, no vomiting, no abdominal pain. NEUROLOGICAL: No headaches, no weakness, no numbness. HEMATOLOGICAL: Denies any bleeding or petechiae. GENITOURINARY: Denies any burning micturition, frequency, or urgency. MUSCULOSKELETAL/RHEUMATOLOGICAL: Denies any joint pain, swelling, or any muscle pain. ENDOCRINE: Denies any polyuria or polydipsia. The rest of the 14-point review of systems is negative. PHYSICAL EXAMINATION: GENERAL: The patient is alert and oriented x3, not in any acute distress. Well developed, well nourished. HEENT: Pupils are round and equally reacting to light. EOMI. No scleral icterus. No conjunctival pallor. Normocephalic, atraumatic. No pharyngeal erythema. No thyromegaly. CARDIOVASCULAR: S1 and S2 present. No murmurs, rubs, or gallops. PULMONARY: Chest is clear to auscultation, no wheezing or crackles. ABDOMEN: Soft, nontender, nondistended, normoactive bowel sounds. No palpable organomegaly. MUSCULOSKELETAL: No joint swelling or deformity. EXTREMITIES: No cyanosis, clubbing, or pedal edema. NEUROLOGICAL: Gross neurological examination did not reveal any focal deficits. SKIN: No rashes. Assessment and Plan Right hip pain with right sided hip replacement in April of this year, Xray/CT reveals no acute findings, Pending orthopedics consultation Nausea from the pain medicaiton continues on IV zofran and compazine has also been added History of hypertension currently low/normal hyzaar currently on hold. Hypthyroidism resumed on levothyroxine Depression resumed on prozac GI prophylaxis DVT prophylaxis Full Code The impression and plan of care has been dictated by Lizeth Gibson, Nurse Practitioner as directed. Dr. Pb MD I have performed a history and physical examination and medical decision making of this patient, discussed the same with the dictator, and agree with the dictators assessment and plan as written, documented as a scribe. Based on total visit time, I have performed more than 50% of this visit. Past Medical History Past Medical History: Hypertension, Thyroid Disorder History of Any Multi-Drug Resistant Organisms: None Reported Past Surgical History: Section, Tonsillectomy, Tubal Ligation Additional Past Surgical History / Comment(s): R knee 2022, R hip Apr 2023 Past Anesthesia/Blood Transfusion Reactions: No Reported Reaction Additional Past Anesthesia/Blood Transfusion Reaction / Comment(s): woke up d uring a tonsilectomy Past Psychological History: Depression Smoking Status: Never smoker Past Alcohol Use History: Occasional Past Drug Use History: None Reported Medications and Allergies Home Medications Medication Instructions Recorded Confirmed Type FLUoxetine HCL [PROzac] 20 mg PO BID 12/30/22 08/25/23 History Levothyroxine Sodium 150 mcg PO DAILY 12/30/22 08/25/23 History Pregabalin 150 mg PO TID 12/30/22 08/25/23 History tiZANidine HCL 4 mg PO HS 12/30/22 08/25/23 History Losartan/Hydrochlorothiazide 1 tab PO DAILY 04/05/23 08/25/23 History [Losartan-Hctz 50-12.5 mg Tab] Ibuprofen [Motrin] 800 mg PO BID PRN 08/25/23 08/25/23 History Loratadine [Claritin] 10 mg PO DAILY 08/25/23 08/25/23 History Ondansetron [Zofran] 4 mg PO DAILY PRN 08/25/23 08/25/23 History predniSONE [Deltasone] 20 mg PO DIRECTED 12 Days #24 08/25/23 Rx tab Allergies Allergy/AdvReac Type Severity Reaction Status Date / Time atenolol AdvReac Cough Verified 08/25/23 07:53 indapamide [From Lozol] AdvReac DIZZINESS Verified 08/25/23 07:53 nifedipine [From Procardia] AdvReac ELEVATED Verified 08/25/23 07:53 B/P Physical Exam Vitals: Vital Signs Temp Pulse Pulse Resp BP BP Pulse Ox 08/25/23 15:00 98 F 72 16 106/70 96 08/25/23 08:00 98 F 70 16 121/73 99 08/25/23 02:00 97.4 F L 71 18 104/72 95 08/25/23 01:49 68 18 188/68 97 08/25/23 01:00 77 18 104/73 97 08/24/23 22:11 63 18 148/84 99 08/24/23 20:04 97.7 F 68 18 144/82 96 Intake and Output 08/25/23 08/25/23 08/25/23 06:59 14:59 22:59 Output Total 450 900 Balance -450 -900 Output: Urine 450 900 Other: Voiding Method External Catheter Weight 115.666 kg Results CBC & Chem 7: 08/25/23 00:16 08/25/23 00:16 Labs: Abnormal Lab Results - Last 24 Hours (Table) 08/25/23 08/25/23 Range/Units 00:16 00:16 Hgb 11.1 L (11.4-16.0) gm/dL Sodium 135 L (137-145) mmol/L Glucose 131 H (74-99) mg/dL AST 79 H (14-36) U/L ALT 83 H (4-34) U/L Alkaline Phosphatase 155 H (38-126) U/L Thrombosis Risk Factor Assmnt - Choose All That Apply Each Risk Factor Represents 2 Points: Age 61-74 years Thrombosis Risk Factor Assessment Total Risk Factor Score: 2 Thrombosis Risk Factor Assessment Level: Low Risk Assessment and Plan Time with Patient: Less than 30
[2023-08-26 09:32] VITALS: BP 118/70; PULSE 69; TEMP 97.8
[2023-08-26 10:38] LABS: BUN/Creat Ratio 18.67 Ratio (12.00-20.00); Blood Urea Nitrogen 16.8 mg/dL (9.0-27.0); Chloride 105 mmol/L (96-109); Glucose 103 mg/dL (70-110); Potassium 4.5 mmol/L (3.5-5.5); Sodium 140 mmol/L (135-145)
[2023-08-26 10:39] LABS: ALT 68 U/L (8-44); AST 62 U/L (13-35); Albumin 3.4 g/dL (3.8-4.9); Alkaline Phosphatase 133 U/L (41-126); Calcium 9.2 mg/dL (8.7-10.3); Carbon Dioxide 24.7 mmol/L (21.6-31.8); Globulin 3.1 g/dL (1.6-3.3); Total Bilirubin 0.3 mg/dL (0.3-1.2); Total Protein 6.5 g/dL (6.2-8.2)
--- NOTE | 2023-08-27 16:17 | P.DS ---
Providers Date of admission: 08/25/23 00:37 Attending physician: Concetta Watson Consults: 08/25/23 09:15 Consult Physician Urgent Consulting Provider: Rafiq Benites Consult Reason/Comments: hip injury, recent surgery, inability to walk Do you want consulting provider notified?: Yes Primary care physician: [place] Hospital Course: Final Diagnosis Right hip pain with right sided hip replacement in April of this year, Xray/CT reveals no acute findings Nausea from the pain medication History of hypertension currently low/normal hyzaar currently on hold. Hypthyroidism resumed on levothyroxine Depression resumed on prozac Discharge Disposition Patient stable for discharge home. Patient will be discharged on oral prednisone taper. Recommending that patient's losartan hydrochlorothiazide combination discontinued at this time as her blood pressure is low normal. Recommended to see her PCP and follow-up for further recommendations. She has an appointment scheduled with Dr. Benites on August 30 at 1 PM. Hospital Course This is a 62 year old female with medical history of hypertension, hypothyroidism, depression. Patient comes into the hospital secondary to right hip pain which happened after patient was exiting her vehicle. Patient reports feeling a pop in her right hip and continues to rate the pain a 10/10. Has now been unable to bear weight on the right leg. Patient underwent right hip hemiarthroplasty back in April of this year with Dr. Benites does report having increased pain to the right hip but was recently given the all clear to continue activity per usual. Had an xray of the right hip reveals stable appearance of the prosthesis. No acute process. Right hip CT reveals a right hip arthroplasty, no periprosthetic fracture, loosening, or subluxation. CT does mention enterocutaneous scar. Minimal fluid in the scar with concern for a small postoperative seroma. Patient denies any numbness or tingling of the right leg. Patient has been admitted to the hospital with consult placed to orthopedics. Currently evaluated on the medical floor. Orthopedics was consulted patient was seen and there are no acute issues with the hardware and alignment of the right hip. Patient was given steroids for discharge and is now evaluated ambulating in the room without assistance. She reports that pain has significantly improved at this time. She will be discharged home. Please see medication reconciliation for a list of current medications. Thank you for allowing us to participate in the care of this patient. The impression and plan of care has been dictated by Lizeth Gibson Nurse Practitioner as directed. Dr. Pb MD I have performed a history and physical examination and medical decision making of this patient, discussed the same with the dictator, and agree with the dictators assessment and plan as written, documented as a scribe. Based on total visit time, I have performed more than 50% of this visit. Patient Condition at Discharge: Stable Plan - Discharge Summary Discharge Rx Participant: Yes New Discharge Prescriptions: New predniSONE [Deltasone] 20 mg PO DIRECTED 12 Days #24 tab Continue Levothyroxine Sodium 150 mcg PO DAILY tiZANidine HCL 4 mg PO HS FLUoxetine HCL [PROzac] 20 mg PO BID Ondansetron [Zofran] 4 mg PO DAILY PRN PRN Reason: Nausea And Vomiting Pregabalin 150 mg PO TID Loratadine [Claritin] 10 mg PO DAILY Ibuprofen [Motrin] 800 mg PO BID PRN PRN Reason: Pain Discontinued Losartan/Hydrochlorothiazide [Losartan-Hctz 50-12.5 mg Tab] 1 tab PO DAILY Discharge Medication List FLUoxetine HCL [PROzac] 20 mg PO BID 12/30/22 [History] Levothyroxine Sodium 150 mcg PO DAILY 12/30/22 [History] Pregabalin 150 mg PO TID 12/30/22 [History] tiZANidine HCL 4 mg PO HS 12/30/22 [History] Ibuprofen [Motrin] 800 mg PO BID PRN 08/25/23 [History] Loratadine [Claritin] 10 mg PO DAILY 08/25/23 [History] Ondansetron [Zofran] 4 mg PO DAILY PRN 08/25/23 [History] predniSONE [Deltasone] 20 mg PO DIRECTED 12 Days #24 tab 08/25/23 [Rx] Follow up Appointment(s)/Referral(s): [facility], [NON-STAFF] - As Needed Elba Woodward [Primary Care Provider] - 1-2 days Rafiq Benites DO [Doctor of Osteopathic Medicine] - 08/31/23 1:00 pm Patient Instructions/Handouts: Hip Pain (ED) Activity/Diet/Wound Care/Special Instructions: Hold blood pressure medication until follow up with Dr. Woodward. Complete prednisone taper Follow up Dr. Benites in the office. Discharge Disposition: HOME WITH HOME HEALTH SERVICES
== END 2023-08-26 11:35 | disposition home health service (06) ==
LOC: EC 20:03 → 1SOBS 08-25 00:37 → 6NMEDSUR 08-25 16:38
PROVIDERS: ADMIT Hospitalist; ATTEND Hospitalist
DX: M25.551 Pain in right hip (principal); R11.0 Nausea; I10 Essential (primary) hypertension; F32.A Depression, unspecified; E03.9 Hypothyroidism, unspecified; Z96.641 Presence of right artificial hip joint; Z79.51 Long term (current) use of inhaled steroids; Z79.82 Long term (current) use of aspirin; Z79.890 Hormone replacement therapy; Z79.899 Other long term (current) drug therapy
CPT/HCPCS: 96376 ×2; 96375; 96372; 96374; 99285; 36415; 97162; 80053 ×2; 85025; 85610; 85730; 73502; 73700; G0378 ×2; J0780; J2405; J1170; J1885 ×3